=== PATIENT | female | born 1995 | race Two or more races ===

== ENCOUNTER 2016-09-20 20:33 | Emergency (ER) | payer SELFPAY ==
[~2016-09-20] VITALS: Ht 160 cm; Wt 59.0 kg
[2016-09-20] MEDS ORDERED: NKM (20:50)
[2016-09-20] MEDS ORDERED: IBUPROFEN600 MG ORAL (21:06)
[2016-09-20] MEDS ORDERED: KEFLEX500 MG ORAL (21:06)
--- NOTE | 2016-09-20 21:12 | Emergency Room Report ---
History of Present Illness General Chief Complaint: Pain Source: Patient Present Illness HPI Patient is a 21-year-old female who presented after having increased left upper extremity pain. Patient gradual onset of symptoms. Patient stated that she had a lesion there for several years. This a become painful over the past 2 days. Patient had intermittent episodes of pain. The pain is sharp in nature. There are no exacerbating or relieving factors. Patient denied any fever. She reports having some numbness to her left small ring and middle fingers. She denied any recent trauma. Allergies: Coded Allergies: No Known Allergies (Unverified , 09/20/16) Patient History Past Medical History: see triage record Last Menstrual Period: Aug Reviewed Nursing Documentation: PMH: Agreed, PSxH: Agreed Nursing Documentation-PMH Past Medical History: No Stated History Review of Systems All Other Systems: negative except mentioned in HPI Physical Exam Vital Signs Date Time Temp Pulse Resp B/P Pulse Ox O2 Delivery O2 Flow Rate FiO2 09/20/16 20:44 98.2 86 16 124/81 100 Room Air General Appearance: well appearing, no apparent distress, alert, GCS 15 Head: normocephalic, atraumatic ENT: hearing grossly normal, normal voice Neck: full range of motion, supple Respiratory: no respiratory distress, speaking full sentences Cardiovascular #1: normal inspection, normal peripheral pulses, regular rate, rhythm Gastrointestinal: normal inspection Musculoskeletal: normal inspection, no calf tenderness Neurologic: normal inspection, alert, oriented x3, normal gait Psychiatric: mood/affect normal Skin: no rash, other - left hand skin lesion 1cm slight raised with minimal erythema Medical Decision Making Diagnostic Impression: Primary Impression: Left forearm pain ER Course Patient presented for left forearm pain. Differential diagnosis included wasn' t limited to cellulitis, abscess, lipoma, muscle tear, sarcoma among others. Patient's benign exam and does not appear to require any further imaging or laboratory testing at this time. The patient appears to have a skin lesion of undetermined type. This has been present for several years per patient and has been slow-growing. The patient was advised followup with her primary care physician for further evaluation and possible surgical referral. Patient given prescription for Keflex as this may be mildly infected.The patient is advised to follow up with primary care doctor in 1-2 days. Patient is advised to return if any worsening condition or if any changes in status that are concerning. Last Vital Signs Date Time Temp Pulse Resp B/P Pulse Ox O2 Delivery O2 Flow Rate FiO2 09/20/16 20:44 98.2 86 16 124/81 100 Room Air Status: improved Disposition: HOME, SELF-CARE Condition: Stable Scripts Ibuprofen* (MOTRIN*) 600 Mg Tablet 600 MG ORAL Q8H Y for For Pain, #30 TAB 0 Refills Prov: Sukhjinder Galdamez 09/20/16 Cephalexin* (KEFLEX*) 500 Mg Capsule 500 MG ORAL Q6H, #28 CAP 0 Refills Prov: Sukhjinder Galdamez 09/20/16 Referrals: NOT CHOSEN IPA/,REFERRING (PCP) Patient Instructions: Cellulitis Sukhjinder Galdamez Sep 20, 2016 21:12
[2016-09-20 21:19] VITALS: BP 123/82
[2016-09-20 21:20] VITALS: BP 124/81
== END 2016-09-20 21:20 | disposition home or self-care (01) ==
LOC: EMR 20:59
DX: M79.602 Pain in left arm (principal)
CPT/HCPCS: 99284